=== PATIENT | female | born 1965 ===

== ENCOUNTER 2017-10-20 07:32 | Outpatient (CLI) | payer OTHER ==
[~2017-10-20] VITALS: Ht 160 cm; Wt 92.1 kg
[2017-10-20] MEDS ORDERED: FLONASE16 GM NASAL (09:09)
== END 2017-10-20 07:50 | disposition home or self-care (01) ==
LOC: OFIC 805 07:32
DX: R05 Cough (principal); J31.0 Chronic rhinitis; J37.0 Chronic laryngitis; K21.9 Gastro-esophageal reflux disease without esophagitis

== ENCOUNTER 2017-12-11 10:00 | Outpatient (CLI) | payer OTHER ==
[~2017-12-11 10:00] MED LIST: FLONASE16 GM NASAL
== END 2017-12-11 10:05 | disposition home or self-care (01) ==
LOC: RAD 10:00
DX: E04.0 Nontoxic diffuse goiter (principal); E04.1 Nontoxic single thyroid nodule; M17.11 Unilateral primary osteoarthritis, right knee

== ENCOUNTER 2018-11-15 08:21 | Outpatient (CLI) | payer OTHER | END 2018-11-15 10:31 | disposition home or self-care (01) | LOC: NUCLEAR 08:21 | DX: K31.84 Gastroparesis (principal) | CPT/HCPCS: 78264; A9541 ==